=== PATIENT | female | born 1985 | race Caucasian/White ===

== ENCOUNTER 2017-05-18 00:27 | Inpatient (IN) | payer BC ==
[~2017-05-18] VITALS: Ht 166.4 cm; Wt 84.1 kg
[2017-05-18] VITALS (20 sets, daily range): BP systolic 101–135; BP diastolic 58–86; PULSE 71–98; TEMP 97.2–98.6
[2017-05-18] MEDS ORDERED: PRENATAL MVI (00:57)
[2017-05-18 02:21] LABS: BASO % 0.4 % (0.0-2.0); EOS # 0.1 (0.0-0.7); EOS % 0.6 % (0-4.0); GRAN # 6.3 (1.4-6.5); GRAN % 66.1 % (42.2-75.2); LYMPH # 2.3 (1.2-3.4); LYMPH % 24.4 % (20.0-51.0); MEAN CELL VOLUME 89 fl (80.0-100.0); MEAN CORPUSCULAR HGB CONC 33 g/dl (33.0-37.0); MEAN PLATELET VOLUME 12.7 fl (7.4-10.4); MONO # 0.7 (0.1-0.6); MONO % 7.2 % (1.7-9.3); PLATELET COUNT 175 K/mm3 (130-400); RED BLOOD COUNT 3.97 M/mm3 (4.10-5.30); WHITE BLOOD COUNT 9.5 K/mm3 (4.8-10.8)
[2017-05-18 02:23] LABS: HEMATOCRIT 35.5 % (37.0-47.0); HEMOGLOBIN 11.8 g/dl (12.5-16.0); MEAN CORPUSCULAR HEMOGLOBIN 30 pg (27.0-31.0)
[2017-05-19 06:47] LABS: BASO % 0.4 % (0.0-2.0); EOS % 0.1 % (0-4.0); GRAN # 5.5 (1.4-6.5); GRAN % 71.3 % (42.2-75.2); LYMPH # 1.7 (1.2-3.4); LYMPH % 21.6 % (20.0-51.0); MEAN CELL VOLUME 91 fl (80.0-100.0); MEAN CORPUSCULAR HGB CONC 33 g/dl (33.0-37.0); MEAN PLATELET VOLUME 12.5 fl (7.4-10.4); MONO # 0.5 (0.1-0.6); MONO % 5.9 % (1.7-9.3); PLATELET COUNT 150 K/mm3 (130-400); RED BLOOD COUNT 3.28 M/mm3 (4.10-5.30); WHITE BLOOD COUNT 7.7 K/mm3 (4.8-10.8)
[2017-05-19 06:48] LABS: HEMATOCRIT 29.8 % (37.0-47.0); HEMOGLOBIN 9.8 g/dl (12.5-16.0); MEAN CORPUSCULAR HEMOGLOBIN 30 pg (27.0-31.0)
[2017-05-19 07:00] VITALS: BP 112/71; PULSE 86; TEMP 98.4
[2017-05-19] MEDS ORDERED: NORCO 325 MG-51 TAB PO (11:51)
[2017-05-19] MEDS ORDERED: IBU600 MG PO (11:51)
[2017-05-19 15:58] VITALS: BP 114/64; PULSE 72; TEMP 98.1
[2017-05-19 21:10] VITALS: BP 119/72; PULSE 89; TEMP 97.7
[2017-05-20 08:15] VITALS: BP 116/75; PULSE 90; TEMP 97.9
[2017-05-20 17:00] VITALS: BP 129/80; PULSE 75; TEMP 98.7
[2017-05-20 21:00] VITALS: BP 116/75; PULSE 83; TEMP 98.3
[2017-05-21 09:03] VITALS: BP 121/75; PULSE 94; TEMP 98.3
== END 2017-05-21 11:45 | disposition home or self-care (01) | DRG 765 ==
LOC: LDRO 00:27 → LDR 01:56 → OB 01:56
PROVIDERS: Obstetrics & Gynecology
PROC: 10D00Z1 Extraction of Products of Conception, Low, Open Approach (ICD-10-PCS; principal; 2017-05-18)
DX: O32.1XX2 Maternal care for breech presentation, fetus 2 (principal); D62 Acute posthemorrhagic anemia; O99.02 Anemia complicating childbirth; O30.043 Twin pregnancy, dichorionic/diamniotic, third trimester; O99.824 Streptococcus B carrier state complicating childbirth; Z3A.36 36 weeks gestation of pregnancy; Z37.2 Twins, both liveborn
CPT/HCPCS: J0690; J1200; J1885; J2270; J2370; J2405; J2590; J2791; J7120

== ENCOUNTER → 2017-05-28 | Outpatient (CLI) | payer BC ==
[~2017-05-28] MED LIST: IBU600 MG PO; NORCO 325 MG-51 TAB PO; PRENATAL MVI
== END ==
LOC: LDRO 12:54
DX: Z39.1 Encounter for care and examination of lactating mother (principal); Z71.89 Other specified counseling

== ENCOUNTER → 2018-12-09 | Emergency (ER) | payer BC | LOC: COL.ER 16:58 | DX: Z72.89 Other problems related to lifestyle (principal) ==

== ENCOUNTER → 2019-10-02 | Outpatient (CLI) | payer BC | LOC: COL.RAD 09:45 | DX: E04.1 Nontoxic single thyroid nodule (principal) ==